=== PATIENT | female | born 2000 ===

== ENCOUNTER 2019-04-21 12:07 | Inpatient (IN) | payer MEDICAID ==
--- NOTE | 2019-04-21 12:45 | PCM.LDHP ---
L&D History of Present Illness - General Date of Service: 04/21/19 Admit Problem/Dx: Admission Diagnosis/Problem Admission Diagnosis/Problem 04/21/19 12:36 18 yo EDC 04/09/2019 41 5/7wks, O+, RI, GBS neg, post dates IOL Source of Information: Patient History Limitations: Reports: No Limitations - History of Present Illness Improves with: Reports: None Worsens with: Reports: None Associated Symptoms: Reports: N - Related Data Allergies/Adverse Reactions: Allergies Allergy/AdvReac Type Severity Reaction Status Date / Time No Known Allergies Allergy Verified 04/16/19 15:07 H&P Review of Systems - Review of Systems: Review Of Systems: See Below General: Reports: No Symptoms HEENT: Reports: No Symptoms Pulmonary: Reports: No Symptoms Cardiovascular: Reports: No Symptoms Gastrointestinal: Reports: No Symptoms Genitourinary: Reports: No Symptoms Musculoskeletal: Reports: No Symptoms Skin: Reports: No Symptoms Psychiatric: Reports: No Symptoms Neurological: Reports: No Symptoms Hematologic/Lymphatic: Reports: No Symptoms Immunologic: Reports: No Symptoms L&D Exam - Exam Exam: See Below - OB Specific Contraction Intensity: Mild Movement: Active Heart Tones: Present Heart Tones per Min: 150 Heart Rate (FHR) Variability: Moderate (6-25 bmp) Presentation: Vertex - Dunbar Score Dunbar Score Cervix Position: Midposition Dunbar Score Consistency: Soft Dunbar Score Effacement: >80% Dunbar Score Dilation: 1-2 cm Dunbar Score 's Station: -2 Dunbar Score Total: 8 - Exam General: Alert, Oriented, Cooperative HEENT: Hearing Intact Lungs: Clear to Auscultation, Normal Respiratory Effort Cardiovascular: Regular Rate, Regular Rhythm, Normal S1, Normal S2 GI/Abdominal Exam: Soft, Non-Tender, Pelvis Stable Rectal Exam: Deferred Genitourinary: Normal external exam, Normal bimanual exam, Cervical dilitation. No: Cervical fluid, Vaginal bleeding Back Exam: Normal Inspection, Full Range of Motion Extremities: Normal Inspection, Normal Range of Motion, Non-Tender, No Pedal Edema Skin: Warm, Dry, Intact Neurological: Cranial Nerves Intact, Reflexes Equal Bilateral, Strength Equal Bilateral, Normal Gait, Normal Speech, Normal Tone, Sensation Intact - Problem List (1) Supervision of normal IUP (intrauterine ) in primigravida SNOMED Code(s): 64247949, 426060250, 133340688, 167446509 ICD Code: Z34.00 - ENCNTR FOR SUPRVSN OF NORMAL FIRST , UNSP TRIMESTER Status: Acute Priority: High Current Visit: Yes Qualifiers: Trimester: third trimester Qualified Code(s): Z34.03 - Encounter for supervision of normal first , third trimester (2) Post-dates SNOMED Code(s): 19295619 ICD Code: O48.0 - POST-TERM Status: Acute Priority: High Current Visit: Yes Qualifiers: Post-term type: 40-42 weeks gestation Qualified Code(s): O48.0 - Post-term Problem List Initiated/Reviewed/Updated: Yes Assessment/Plan Comment:: IOL for post dates A: 18 yo EDC 04/09/2019 41 5/7wks, O+, RI, GBS neg, post dates IOL P: Admit, cytotec to pitocin, pain meds prn, anticipate , Dr Breen updated
[2019-04-21] MEDS ORDERED: Methylergonovine 0.2 MG/1 ML Amp IM PRN (13:51)
[2019-04-21] MEDS ORDERED: Tranexamic Acid 1,000 MG in Sodium Chloride 0.9% 100 ML IV PRN (13:51)
[2019-04-21] MEDS ORDERED: Sodium Chloride 0.9% 2.5 ML Syringe FLUSH PRN (13:51)
[2019-04-21] MEDS ORDERED: Nalbuphine 10 MG/1 ML Vial IVPUSH PRN (13:51)
[2019-04-21] MEDS ORDERED: Lidocaine 1% 50 ML MDV INJECT PRN (13:51)
[2019-04-21] MEDS ORDERED: Terbutaline 1 MG/ML SDV SUBCUT PRN (13:51)
[2019-04-21] MEDS ORDERED: Ondansetron 4 MG/2 ML SDV IVPUSH PRN (13:51)
[2019-04-21] MEDS ORDERED: Carboprost Tromethamine 250 MCG/1 ML Amp IM PRN (13:51)
[2019-04-21] MEDS ORDERED: Sodium Chloride 0.9% 10 ML Syringe FLUSH PRN (13:51)
[2019-04-21] MEDS ORDERED: Misoprostol 25 MCG (1/4 of 100 MCG) Tab VAG PRN (13:51)
[2019-04-21] MEDS ORDERED: Water For Irrigation,Sterile 1,000 ML Container IRR PRN (13:51)
[2019-04-21] MEDS ORDERED: Misoprostol 200 MCG Tab PO PRN (13:51)
[2019-04-21] MEDS ORDERED: Butorphanol 1 MG/ML SDV IVPUSH PRN (13:51)
[2019-04-21] MEDS ORDERED: Sodium Chloride 0.9% 10 ML SDV IV PRN (13:51)
[2019-04-21] MEDS ORDERED: Oxytocin/0.9 % Sodium Chloride 30 UNIT/500 ML BAG IV SCH ×2 (14:00)
[2019-04-21] MEDS: Misoprostol 25 MCG (1/4 of 100 MCG) Tab PO PRN ×2 (14:10→19:20)
[2019-04-21] MEDS: Misoprostol 25 MCG (1/4 of 100 MCG) Tab VAG PRN ×2 (14:11→19:19)
[2019-04-22] MEDS: Lactated Ringers 1,000 ML IV SCH ×2 (10:15→11:02)
[2019-04-22] MEDS ORDERED: Oxytocin 10 Units/1 ML SDV ONE (11:20)
[2019-04-22] MEDS ORDERED: Morphine PF 10 MG/10 ML SDV ONE (11:20)
[2019-04-22] MEDS ORDERED: Ondansetron 4 MG/2 ML SDV ONE (11:20)
[2019-04-22] MEDS ORDERED: Citric Acid/Sodium Citrate Solution 30 ML Cup ONE (11:25)
[2019-04-22] MEDS ORDERED: Octyl 2-Cyanoacrylate 1 Tube ONE (11:41)
[2019-04-22] MEDS ORDERED: Nalbuphine 10 MG/1 ML Vial IVPUSH PRN (11:46)
[2019-04-22] MEDS ORDERED: fentaNYL 100 MCG/2 ML SDV IVPUSH PRN (11:46)
[2019-04-22] MEDS ORDERED: Acetaminophen/oxyCODONE 325-5 MG Tab PO PRN ×2 (11:46→11:56)
--- NOTE | 2019-04-22 11:46 | PCM.PREANE ---
Preanesthetic Assessment - Anesthesia/Transfusion/Family Hx Anesthesia History: No Prior Anesthesia Family History of Anesthesia Reaction: No Transfusion History: No Prior Transfusion(s) - Review of Systems General: No Symptoms Pulmonary: No Symptoms Cardiovascular: No Symptoms Neurological: No Symptoms Other: Reports: None - Physical Assessment Height: 5 ft 2 in Weight: 77.111 kg ASA Class: 2E Mental Status: Alert & Oriented x3 Airway Class: Mallampati = 2 Dentition: Reports: Normal Dentition ROM/Head Extension: Full Lungs: Clear to Auscultation, Normal Respiratory Effort Cardiovascular: Regular Rate, Regular Rhythm - Lab Values: Laboratory Last Values WBC 10.59 K/uL (4.0-11.0) 04/21/19 13:22 RBC 4.51 M/uL (4.30-5.90) 04/21/19 13:22 Hgb 14.2 g/dL (12.0-16.0) 04/21/19 13:22 Hct 42.0 % (36.0-46.0) 04/21/19 13:22 MCV 93.1 fL (80.0-98.0) 04/21/19 13:22 MCH 31.5 pg (27.0-32.0) 04/21/19 13:22 MCHC 33.8 g/dL (31.0-37.0) 04/21/19 13:22 RDW Std Deviation 47.7 fl (28.0-62.0) 04/21/19 13:22 RDW Coeff of Azeb 14 % (11.0-15.0) 04/21/19 13:22 Plt Count 148 K/uL (150-400) L 04/21/19 13:22 MPV 12.10 fL (7.40-12.00) H 04/21/19 13:22 Nucleated RBC % 0.0 /100WBC 04/21/19 13:22 Nucleated RBCs # 0 K/uL 04/21/19 13:22 Blood Type O POSITIVE 04/21/19 13:22 Antibody Screen NEGATIVE 04/21/19 13:22 - Allergies Allergies/Adverse Reactions: Allergies Allergy/AdvReac Type Severity Reaction Status Date / Time No Known Allergies Allergy Verified 04/16/19 15:07 - Blood Blood Available: No - Anesthesia Plan Pre-Op Medication Ordered: None - Acknowledgements Anesthesia Type Planned: Spinal Pt an Appropriate Candidate for the Planned Anesthesia: Yes Alternatives and Risks of Anesthesia Discussed w Pt/Guardian: Yes Pt/Guardian Understands and Agrees with Anesthesia Plan: Yes Additional Comments: , 6 cm, no epidural, urgent c/s called for nrfht, spinal consented questions answered. NKDA, nl airway PLAN: spinal with it duramorph PreAnesthesia Questionnaire - Past Health History Medical/Surgical History: Denies Medical/Surgical History - SUBSTANCE USE Smoking Status *Q: Never Smoker Tobacco Use Within Last Twelve Months: No Second Hand Smoke Exposure: No Recreational Drug Use History: No - CURRENT (IN HOUSE) MEDS Current Meds: Current Medications Butorphanol Tartrate (Stadol) 1 mg IVPUSH Q1H PRN PRN Reason: Pain Carboprost Tromethamine (Hemabate Ds) 250 mcg IM ASDIRECTED PRN PRN Reason: Post Hemorrhage Lactated Ringer's (Ringers, Lactated) 1,000 mls @ 150 mls/hr IV ASDIRECTED NIKKI Oxytocin/Sodium Chloride (Oxytocin 30 Unit/500 Ml-Ns) 30 unit in 500 mls @ 999 mls/hr IV TITRATE NIKKI Oxytocin/Sodium Chloride (Oxytocin 30 Unit/500 Ml-Ns) 30 unit in 500 mls @ 2 mls/hr IV TITRATE NIKKI; Protocol Tranexamic Acid 1,000 mg/ (Sodium Chloride) 110 mls @ 660 mls/hr IV ONETIME PRN PRN Reason: Bleeding Lidocaine HCl (Xylocaine 1%) 50 ml INJECT ONETIME PRN PRN Reason: Laceration repair Methylergonovine Maleate (Methergine) 0.2 mg IM ASDIRECTED PRN PRN Reason: Post Hemorrhage Misoprostol (Cytotec) 200 mcg PO ONETIME PRN PRN Reason: Post Hemorrhage Misoprostol (Cytotec) 25 mcg VAG ONETIME PRN PRN Reason: Cervical Ripening Misoprostol (Cytotec) 25 mcg VAG Q4H PRN PRN Reason: Cervical Ripening Last Admin: 04/21/19 19:19 Dose: 25 mcg Misoprostol (Cytotec) 25 mcg PO Q4H PRN PRN Reason: Cervical Ripening Last Admin: 04/21/19 19:20 Dose: 25 mcg Nalbuphine HCl (Nubain) 10 mg IVPUSH Q1H PRN PRN Reason: Pain (severe 7-10) Ondansetron HCl (Zofran) 4 mg IVPUSH Q6H PRN PRN Reason: Nausea/Vomiting Sodium Chloride (Saline Flush) 10 ml FLUSH ASDIRECTED PRN PRN Reason: Keep Vein Open Sodium Chloride (Saline Flush) 2.5 ml FLUSH ASDIRECTED PRN PRN Reason: Keep Vein Open Sodium Chloride (Normal Saline) 10 ml IV ASDIRECTED PRN PRN Reason: IV Use Sterile Water (Sterile Water For Irrigation) 1,000 ml IRR ASDIRECTED PRN PRN Reason: delivery Terbutaline Sulfate (Brethine) 0.25 mg SUBCUT ASDIRECTED PRN PRN Reason: Tacysystole Discontinued Medications Citric Acid/Sodium Citrate (Bicitra Solution) Confirm Administered Dose 30 ml .ROUTE .STK-MED ONE Stop: 04/22/19 11:26 Morphine Sulfate (Duramorph Pf) Confirm Administered Dose 10 mg .ROUTE .STK-MED ONE Stop: 04/22/19 11:21 Octyl Cyanoacrylate (Dermabond Advance) Confirm Administered Dose 1 applic .ROUTE .STK-MED ONE Stop: 04/22/19 11:42 Ondansetron HCl (Zofran) Confirm Administered Dose 4 mg .ROUTE .STK-MED ONE Stop: 04/22/19 11:21 Oxytocin (Pitocin) Confirm Administered Dose 30 unit .ROUTE .STK-MED ONE Stop: 04/22/19 11:21
[2019-04-22] MEDS ORDERED: Citric Acid/Sodium Citrate Solution 30 ML Cup PO ONE (11:50)
[2019-04-22] MEDS ORDERED: Sodium Chloride 0.9% 2.5 ML Syringe FLUSH PRN (11:50)
[2019-04-22] MEDS ORDERED: Sodium Chloride 0.9% 10 ML Syringe FLUSH PRN (11:50)
[2019-04-22] MEDS ORDERED: Sodium Chloride 0.9% 10 ML SDV IV PRN (11:50)
[2019-04-22] MEDS ORDERED: Lanolin 100% Cream 7 GM Tube TOP PRN (11:56)
[2019-04-22] MEDS ORDERED: diphenhydrAMINE 50 MG/ML SDV IVPUSH PRN (11:56)
[2019-04-22] MEDS ORDERED: Ondansetron 4 MG/2 ML SDV IVPUSH PRN (11:56)
[2019-04-22] MEDS ORDERED: Bisacodyl 10 MG Supp RECTAL PRN (11:56)
[2019-04-22] MEDS ORDERED: Lactated Ringers 1,000 ML IV SCH ×2 (12:00)
--- NOTE | 2019-04-22 12:00 | PCM.OPNOTE ---
- General Post-Op/Procedure Note Date of Surgery/Procedure: 04/22/19 Operative Procedure(s): Emergency C/Section. Pre Op Diagnosis: distress Post-Op Diagnosis: Same Anesthesia Technique: Spinal Primary Surgeon: Felix Breen Vessel Captain: Emely Paredes EBL in mLs: 650 Complications: None Condition: Good
[2019-04-22] MEDS: Ketorolac 30 MG/ML SDV IVPUSH SCH ×3 (12:37→23:56)
--- NOTE | 2019-04-22 12:58 | PCM.POSTAN ---
POST ANESTHESIA ASSESSMENT - MENTAL STATUS Mental Status: Alert, Oriented - VITAL SIGNS Vital Signs: Last Vital Signs Temp Pulse 81 04/22/19 12:41 Resp 14 04/22/19 12:41 BP 101/44 L 04/22/19 12:41 Pulse Ox 97 04/22/19 12:41 - RESPIRATORY Respiratory Status: Respiratory Rate WNL, Airway Patent, O2 Saturation Stable - CARDIOVASCULAR CV Status: Pulse Rate WNL, Blood Pressure Stable - GASTROINTESTINAL GI Status: No Symptoms - POST OP HYDRATION Hydration Status: Adequate & Stable
--- NOTE | 2019-04-22 15:48 | OR ---
SURGEON: Felix Breen MD DATE OF PROCEDURE: 04/22/2019 PREOPERATIVE DIAGNOSES: Intrauterine , postdate, 41+ 5, non-reassuring heart rate, remote from delivery. POSTOPERATIVE DIAGNOSES: Intrauterine , postdate, 41+ 5, non-reassuring heart rate, remote from delivery. OPERATION PERFORMED: Emergency low transverse section. PRIMARY SURGEON: Felix Breen MD. REGIONAL PLANNER: Emely Paredes, Certified Nurse Water Quality Technician. ANESTHESIA: Spinal, Luther Ferguson and Dr. Dooley. ESTIMATED BLOOD LOSS: 650 mL. COMPLICATIONS: None. FINDING: Male fetus. score reported to be 8 and 9. Weight is not available. There was multiple loops of the cord squeezed between the head and shoulders, which probably contributed to the heart rate deceleration. INDICATION FOR SURGERY: This patient is postdate. She is 41+ 5. She is followed by our payloader operator in the clinic. She had no complication. She is admitted for induction. She was responding to Pitocin. She went 5 cm vertex and -3. She started having repeat continuous late deceleration and typical category 2 heart rate. I have evaluated the patient and the patient was 6 cm completely dilated remote from the delivery. Because of the fact that she is postdate, because the heart rate is category 2, and the patient is having extended bradycardia or contraction, a decision is made to do an emergency primary low-transverse section. DESCRIPTION OF PROCEDURE: The patient was brought to the OR, properly identified, and after adequate level of spinal anesthesia with a Ferrara catheter in the bladder, the patient was prepped and draped in sterile fashion as usual. A low transverse Pfannenstiel skin incision done. Millicent's fascia and rectus fascia were opened in direction of the incision. The 2 recti muscles were and peritoneal cavity was entered. Bladder flap was raised in the usual manner pushing the bladder away from the lower uterine segment. Low transverse uterine incision was done, extended manually with hand, and fetus was in a vertex position, delivered, cried immediately, handed to the resuscitating team. score later on reported to be 8 and 9. Multiple loops of nuchal cord around the head and shoulder, which shows looping around and which has probably contributed to the fact that the patient has had extended bradycardia with contraction. The placenta delivered spontaneous complete and intact and repair of the lower uterine segment done with 2-0 Vicryl interlocking in 2 layers. Reperitonealization done with 3-0 Vicryl continuous. The peritoneal cavity evacuated completely from all blood and blood clot and closed with 3-0 Vicryl continuous. The rectus fascia was closed with #1 PDS continuous and then the Millicent fascia with 3-0 Vicryl continuous and the skin closed with Stratafix subcuticular with Dermabond. Instrument and sponge count was correct. The patient tolerated the procedure well, went to recovery room in stable general condition. FLORIN SYKES /[id number]
[2019-04-23] MEDS: Ketorolac 30 MG/ML SDV IVPUSH SCH ×2 (06:26→12:15)
--- NOTE | 2019-04-23 08:11 | PCM48HPAN ---
Post Anesthesia Note - EVALUATION WITHIN 48HRS OF ANESTHETIC Vital Signs in Normal Range: Yes Patient Participated in Evaluation: Yes Respiratory Function Stable: Yes Airway Patent: Yes Cardiovascular Function Stable: Yes Hydration Status Stable: Yes Pain Control Satisfactory: Yes Nausea and Vomiting Control Satisfactory: Yes Mental Status Recovered: Yes Vital Signs: Last Vital Signs Temp 97 F 04/23/19 04:00 Pulse 72 04/23/19 06:55 Resp 16 04/23/19 06:55 BP 109/56 L 04/23/19 04:00 Pulse Ox 95 04/23/19 06:55
[2019-04-23] MEDS: Docusate Sodium 100 MG Cap PO SCH ×3 (08:37→21:10)
--- NOTE | 2019-04-23 08:44 | PCM.PNPP ---
- General Info Date of Service: 04/23/19 Admission Dx/Problem (Free Text): Admission Diagnosis/Problem Admission Diagnosis/Problem 04/21/19 12:36 18 yo EDC 04/09/2019 41 5/7wks, O+, RI, GBS neg, post dates IOL Functional Status: Reports: Pain Controlled, Tolerating Diet, Ambulating, Urinating - Review of Systems General: Reports: No Symptoms HEENT: Reports: No Symptoms Pulmonary: Reports: No Symptoms Cardiovascular: Reports: No Symptoms Gastrointestinal: Reports: No Symptoms Genitourinary: Reports: No Symptoms Musculoskeletal: Reports: No Symptoms Skin: Reports: No Symptoms Neurological: Reports: No Symptoms Psychiatric: Reports: No Symptoms - General Info Date of Service: 04/23/19 - Patient Data Vital Signs - Most Recent: Last Vital Signs Temp 36.1 C 04/23/19 04:00 Pulse 72 04/23/19 06:55 Resp 16 04/23/19 06:55 BP 109/56 L 04/23/19 04:00 Pulse Ox 95 04/23/19 06:55 Weight - Most Recent: 77.111 kg I&O - Last 24 Hours: Intake & Output 04/22/19 04/23/19 04/23/19 22:59 06:59 14:59 Intake Total 4500 Output Total 2090 Balance 2410 Lab Results - Last 24 Hours: Laboratory Results - last 24 hr 04/23/19 Range/Units 06:04 Hgb 12.2 (12.0-16.0) g/dL Hct 37.0 (36.0-46.0) % Med Orders - Current: Current Medications Bisacodyl (Dulcolax) 10 mg RECTAL ONETIME PRN PRN Reason: Constipation Butorphanol Tartrate (Stadol) 1 mg IVPUSH Q1H PRN PRN Reason: Pain Carboprost Tromethamine (Hemabate Ds) 250 mcg IM ASDIRECTED PRN PRN Reason: Post Hemorrhage Diphenhydramine HCl (Benadryl) 25 mg IVPUSH Q6H PRN PRN Reason: Itching or Nausea Docusate Sodium (Colace) 100 mg PO BID NIKKI Last Admin: 04/23/19 08:38 Dose: 100 mg Emollient Ointment (Lansinoh Hpa) 0 gm TOP ASDIRECTED PRN PRN Reason: Sore Nipples Fentanyl (Sublimaze) 50 mcg IVPUSH Q5M PRN PRN Reason: Pain (severe 7-10) Stop: 04/23/19 11:46 Lactated Ringer's (Ringers, Lactated) 1,000 mls @ 150 mls/hr IV ASDIRECTED [facility] Last Admin: 04/22/19 11:02 Dose: 500 mls/hr Oxytocin/Sodium Chloride (Oxytocin 30 Unit/500 Ml-Ns) 30 unit in 500 mls @ 999 mls/hr IV TITRATE NIKKI Oxytocin/Sodium Chloride (Oxytocin 30 Unit/500 Ml-Ns) 30 unit in 500 mls @ 2 mls/hr IV TITRATE NIKKI; Protocol Tranexamic Acid 1,000 mg/ (Sodium Chloride) 110 mls @ 660 mls/hr IV ONETIME PRN PRN Reason: Bleeding Lactated Ringer's (Ringers, Lactated) 1,000 mls @ 500 mls/hr IV BOLUS NIKKI Lactated Ringer's (Ringers, Lactated) 1,000 mls @ 125 mls/hr IV ASDIRECTED [facility] Last Admin: 04/22/19 14:41 Dose: 125 mls/hr Ibuprofen (Motrin) 800 mg PO Q8H PRN PRN Reason: mild pain or fever Ketorolac Tromethamine (Toradol) 30 mg IVPUSH Q6H [facility] Stop: 04/23/19 12:01 Last Admin: 04/23/19 06:26 Dose: 30 mg Lidocaine HCl (Xylocaine 1%) 50 ml INJECT ONETIME PRN PRN Reason: Laceration repair Methylergonovine Maleate (Methergine) 0.2 mg IM ASDIRECTED PRN PRN Reason: Post Hemorrhage Misoprostol (Cytotec) 200 mcg PO ONETIME PRN PRN Reason: Post Hemorrhage Misoprostol (Cytotec) 25 mcg VAG ONETIME PRN PRN Reason: Cervical Ripening Misoprostol (Cytotec) 25 mcg VAG Q4H PRN PRN Reason: Cervical Ripening Last Admin: 04/21/19 19:19 Dose: 25 mcg Misoprostol (Cytotec) 25 mcg PO Q4H PRN PRN Reason: Cervical Ripening Last Admin: 04/21/19 19:20 Dose: 25 mcg Nalbuphine HCl (Nubain) 10 mg IVPUSH Q1H PRN PRN Reason: Pain (severe 7-10) Nalbuphine HCl (Nubain) 2.5 mg IVPUSH Q3H PRN PRN Reason: Pruritis Stop: 04/23/19 11:47 Ondansetron HCl (Zofran) 4 mg IVPUSH Q6H PRN PRN Reason: Nausea/Vomiting Ondansetron HCl (Zofran) 4 mg IVPUSH Q4H PRN PRN Reason: Nausea/Vomiting Oxycodone/Acetaminophen (Percocet 325-5 Mg) 1 tab PO ONETIME PRN PRN Reason: Pain (moderate 4-6) Oxycodone/Acetaminophen (Percocet 325-5 Mg) 1 tab PO Q4H PRN PRN Reason: Pain (moderate 4-6) Oxycodone/Acetaminophen (Percocet 325-5 Mg) 2 tab PO Q4H PRN PRN Reason: Pain (moderate 4-6) Sodium Chloride (Saline Flush) 10 ml FLUSH ASDIRECTED PRN PRN Reason: Keep Vein Open Sodium Chloride (Saline Flush) 2.5 ml FLUSH ASDIRECTED PRN PRN Reason: Keep Vein Open Sodium Chloride (Normal Saline) 10 ml IV ASDIRECTED PRN PRN Reason: IV Use Sodium Chloride (Saline Flush) 10 ml FLUSH ASDIRECTED PRN PRN Reason: Keep Vein Open Sodium Chloride (Saline Flush) 2.5 ml FLUSH ASDIRECTED PRN PRN Reason: Keep Vein Open Sodium Chloride (Normal Saline) 10 ml IV ASDIRECTED PRN PRN Reason: IV Use Sterile Water (Sterile Water For Irrigation) 1,000 ml IRR ASDIRECTED PRN PRN Reason: delivery Terbutaline Sulfate (Brethine) 0.25 mg SUBCUT ASDIRECTED PRN PRN Reason: Tacysystole Discontinued Medications Citric Acid/Sodium Citrate (Bicitra Solution) Confirm Administered Dose 30 ml .ROUTE .STK-MED ONE Stop: 04/22/19 11:26 Last Admin: 04/22/19 18:14 Dose: Not Given Citric Acid/Sodium Citrate (Bicitra Solution) 30 ml PO ONETIME ONE Stop: 04/22/19 11:51 Last Admin: 04/22/19 18:14 Dose: Not Given Morphine Sulfate (Duramorph Pf) Confirm Administered Dose 10 mg .ROUTE .STK-MED ONE Stop: 04/22/19 11:21 Octyl Cyanoacrylate (Dermabond Advance) Confirm Administered Dose 1 applic .ROUTE .STK-MED ONE Stop: 04/22/19 11:42 Last Admin: 04/22/19 18:14 Dose: Not Given Ondansetron HCl (Zofran) Confirm Administered Dose 4 mg .ROUTE .STK-MED ONE Stop: 04/22/19 11:21 Oxytocin (Pitocin) Confirm Administered Dose 30 unit .ROUTE .STK-MED ONE Stop: 04/22/19 11:21 - Infant Interaction Infant Disposition, : in Room with Family Interaction: Holding Infant Infant Feeding: Breastfed ; Nursed Well Support Person: Mother - Recovery Exam Fundal Tone: Firm Fundal Level: At Umbilicus Fundal Placement: Midline Lochia Amount: Scant Lochia Color: Rubra/Red Episiotomy/Laceration: None Bladder Status: Voiding Urinary Elimination: Voided - Exam General: Alert, Oriented, Cooperative Lungs: Normal Respiratory Effort GI/Abdominal Exam: Soft, Non-Tender, No Distention, Pelvis Stable Extremities: Normal Inspection, Normal Range of Motion, Non-Tender, No Pedal Edema Skin: Warm, Dry, Intact Wound/Incisions: Healing Well Neurological: No New Focal Deficit, Normal Speech, Normal Tone, Strength Equal Bilateral, Sensation Intact Psy/Mental Status: Alert, Normal Affect, Normal Mood - Problem List & Annotations (1) Supervision of normal IUP (intrauterine ) in primigravida SNOMED Code(s): 95048778, 204450511, 272305678, 169828872 Code(s): Z34.00 - ENCNTR FOR SUPRVSN OF NORMAL FIRST , UNSP TRIMESTER Status: Acute Priority: High Current Visit: Yes Qualifiers: Trimester: third trimester Qualified Code(s): Z34.03 - Encounter for supervision of normal first , third trimester (2) Post-dates SNOMED Code(s): 63779339 Code(s): O48.0 - POST-TERM Status: Acute Priority: High Current Visit: Yes Qualifiers: Post-term type: 40-42 weeks gestation Qualified Code(s): O48.0 - Post-term (3) delivery delivered SNOMED Code(s): 290751560 Code(s): O82 - ENCOUNTER FOR DELIVERY WITHOUT INDICATION Status: Acute Priority: High Current Visit: Yes - Problem List Review Problem List Initiated/Reviewed/Updated: Yes - Plan Plan:: IOL for post dates A: 18 yo EDC 04/09/2019 41 5/7wks, O+, RI, GBS neg, post dates IOL P: Admit, cytotec to pitocin, pain meds prn, anticipate , Dr Breen updated PPD#1 A: PCS for NSFHT, VSS, AF, dressing intact, no concerns. Stable P; Continue pp poc
[2019-04-23] MEDS: Acetaminophen/oxyCODONE 325-5 MG Tab PO PRN (19:53)
[2019-04-23] MEDS: Ibuprofen 800 MG Tab PO PRN (19:55)
[2019-04-24] MEDS: Acetaminophen/oxyCODONE 325-5 MG Tab PO PRN ×3 (01:36→13:18)
[2019-04-24] MEDS: Ibuprofen 800 MG Tab PO PRN ×2 (06:11→13:17)
--- NOTE | 2019-04-24 06:44 | PCM.DCSUM1 ---
Discharge Summary - Hospital Course Free Text/Narrative:: Discharge home with infant. Follow up in 1 weeks for incision check and 6 weeks for visit. Diagnosis: Stroke: No Modified Vandemere Scale: No Symptoms at All Modified Vandemere Scale Score: 0 - Discharge Data Discharge Date: 04/24/19 Discharge Disposition: Home, Self-Care 01 Condition: Good - Referral to Home Health Primary Care Physician: PCP Unknown - Discharge Diagnosis/Problem(s) (1) Supervision of normal IUP (intrauterine ) in primigravida SNOMED Code(s): 93701221, 361121277, 644950902, 381046474 ICD Code: Z34.00 - ENCNTR FOR SUPRVSN OF NORMAL FIRST , UNSP TRIMESTER Status: Acute Priority: High Current Visit: Yes Qualifiers: Trimester: third trimester Qualified Code(s): Z34.03 - Encounter for supervision of normal first , third trimester (2) Post-dates SNOMED Code(s): 45815733 ICD Code: O48.0 - POST-TERM Status: Acute Priority: High Current Visit: Yes Qualifiers: Post-term type: 40-42 weeks gestation Qualified Code(s): O48.0 - Post-term (3) delivery delivered SNOMED Code(s): 220592083 ICD Code: O82 - ENCOUNTER FOR DELIVERY WITHOUT INDICATION Status: Acute Priority: High Current Visit: Yes - Patient Summary/Data Operative Procedure(s) Performed: Emergency C/Section. - Patient Instructions Diet: Usual Diet as Tolerated Activity: As Tolerated, No Strenuous Activities, Rest and Relax Today Driving: Do Not Drive Showering/Bathing: May Shower Wound/Incision Care: Keep Operative Site/Wound Site Clean and Dry Notify Provider of: Fever, Increased Pain, Swelling and Redness, Drainage, Nausea and/or Vomiting Other/Special Instructions: Discharge home with infant. Follow up in 1 weeks for incision check and 6 weeks for visit. - Discharge Plan *PRESCRIPTION DRUG MONITORING PROGRAM REVIEWED*: Not Applicable *COPY OF PRESCRIPTION DRUG MONITORING REPORT IN PATIENT RE: Not Applicable Prescriptions/Med Rec: Acetaminophen/oxyCODONE [Percocet 325-5 MG] 1 tab PO ONETIME PRN #30 tablet PRN Reason: Pain (Moderate 4-6) Ibuprofen [Motrin] 800 mg PO Q8H PRN #90 tablet PRN Reason: mild pain or fever Home Medications: Home Meds Acetaminophen/oxyCODONE [Percocet 325-5 MG] 1 tab PO ONETIME PRN #30 tablet 05/03 [Rx] Ibuprofen [Motrin] 800 mg PO Q8H PRN #90 tablet 04/24/19 [Rx] Oxygen Therapy Mode: Room Air Referrals: [facility] [Outside] Emely Paredes CNM [Mid-] - ( week- May 02@ 10:45am w/ Emely Paredes week- June 02@ 10:45am w/ Emely Paredes) - Discharge Summary/Plan Comment DC Time >30 min.: Yes - General Info Date of Service: 04/24/19 Admission Dx/Problem (Free Text: Admission Diagnosis/Problem Admission Diagnosis/Problem 04/21/19 12:36 18 yo EDC 04/09/2019 41 5/7wks, O+, RI, GBS neg, post dates IOL Functional Status: Reports: Pain Controlled, Tolerating Diet, Ambulating, Urinating - Review of Systems General: Reports: No Symptoms HEENT: Reports: No Symptoms Pulmonary: Reports: No Symptoms Cardiovascular: Reports: No Symptoms Gastrointestinal: Reports: No Symptoms Genitourinary: Reports: No Symptoms Musculoskeletal: Reports: No Symptoms Skin: Reports: No Symptoms Neurological: Reports: No Symptoms Psychiatric: Reports: No Symptoms - Patient Data Vitals - Most Recent: Last Vital Signs Temp 36.4 C 04/24/19 06:12 Pulse 67 04/24/19 06:12 Resp 17 04/24/19 06:12 BP 126/85 04/24/19 06:12 Pulse Ox 98 04/24/19 06:12 Weight - Most Recent: 77.111 kg Med Orders - Current: Current Medications Bisacodyl (Dulcolax) 10 mg RECTAL ONETIME PRN PRN Reason: Constipation Butorphanol Tartrate (Stadol) 1 mg IVPUSH Q1H PRN PRN Reason: Pain Carboprost Tromethamine (Hemabate Ds) 250 mcg IM ASDIRECTED PRN PRN Reason: Post Hemorrhage Diphenhydramine HCl (Benadryl) 25 mg IVPUSH Q6H PRN PRN Reason: Itching or Nausea Docusate Sodium (Colace) 100 mg PO BID [facility] Last Admin: 04/23/19 21:10 Dose: 100 mg Emollient Ointment (Lansinoh Hpa) 0 gm TOP ASDIRECTED PRN PRN Reason: Sore Nipples Lactated Ringer's (Ringers, Lactated) 1,000 mls @ 150 mls/hr IV ASDIRECTED [facility] Last Admin: 04/22/19 11:02 Dose: 500 mls/hr Oxytocin/Sodium Chloride (Oxytocin 30 Unit/500 Ml-Ns) 30 unit in 500 mls @ 999 mls/hr IV TITRATE NIKKI Oxytocin/Sodium Chloride (Oxytocin 30 Unit/500 Ml-Ns) 30 unit in 500 mls @ 2 mls/hr IV TITRATE NIKKI; Protocol Tranexamic Acid 1,000 mg/ (Sodium Chloride) 110 mls @ 660 mls/hr IV ONETIME PRN PRN Reason: Bleeding Lactated Ringer's (Ringers, Lactated) 1,000 mls @ 500 mls/hr IV BOLUS [facility] Lactated Ringer's (Ringers, Lactated) 1,000 mls @ 125 mls/hr IV ASDIRECTED [facility] Last Admin: 04/22/19 14:41 Dose: 125 mls/hr Ibuprofen (Motrin) 800 mg PO Q8H PRN PRN Reason: mild pain or fever Last Admin: 04/24/19 06:11 Dose: 800 mg Lidocaine HCl (Xylocaine 1%) 50 ml INJECT ONETIME PRN PRN Reason: Laceration repair Methylergonovine Maleate (Methergine) 0.2 mg IM ASDIRECTED PRN PRN Reason: Post Hemorrhage Misoprostol (Cytotec) 200 mcg PO ONETIME PRN PRN Reason: Post Hemorrhage Misoprostol (Cytotec) 25 mcg VAG ONETIME PRN PRN Reason: Cervical Ripening Misoprostol (Cytotec) 25 mcg VAG Q4H PRN PRN Reason: Cervical Ripening Last Admin: 04/21/19 19:19 Dose: 25 mcg Misoprostol (Cytotec) 25 mcg PO Q4H PRN PRN Reason: Cervical Ripening Last Admin: 04/21/19 19:20 Dose: 25 mcg Nalbuphine HCl (Nubain) 10 mg IVPUSH Q1H PRN PRN Reason: Pain (severe 7-10) Ondansetron HCl (Zofran) 4 mg IVPUSH Q6H PRN PRN Reason: Nausea/Vomiting Ondansetron HCl (Zofran) 4 mg IVPUSH Q4H PRN PRN Reason: Nausea/Vomiting Oxycodone/Acetaminophen (Percocet 325-5 Mg) 1 tab PO ONETIME PRN PRN Reason: Pain (moderate 4-6) Oxycodone/Acetaminophen (Percocet 325-5 Mg) 1 tab PO Q4H PRN PRN Reason: Pain (moderate 4-6) Last Admin: 04/23/19 16:10 Dose: 1 tab Oxycodone/Acetaminophen (Percocet 325-5 Mg) 2 tab PO Q4H PRN PRN Reason: Pain (moderate 4-6) Last Admin: 04/24/19 06:11 Dose: 2 tab Sodium Chloride (Saline Flush) 10 ml FLUSH ASDIRECTED PRN PRN Reason: Keep Vein Open Sodium Chloride (Saline Flush) 2.5 ml FLUSH ASDIRECTED PRN PRN Reason: Keep Vein Open Sodium Chloride (Normal Saline) 10 ml IV ASDIRECTED PRN PRN Reason: IV Use Sodium Chloride (Saline Flush) 10 ml FLUSH ASDIRECTED PRN PRN Reason: Keep Vein Open Sodium Chloride (Saline Flush) 2.5 ml FLUSH ASDIRECTED PRN PRN Reason: Keep Vein Open Sodium Chloride (Normal Saline) 10 ml IV ASDIRECTED PRN PRN Reason: IV Use Sterile Water (Sterile Water For Irrigation) 1,000 ml IRR ASDIRECTED PRN PRN Reason: delivery Terbutaline Sulfate (Brethine) 0.25 mg SUBCUT ASDIRECTED PRN PRN Reason: Tacysystole Discontinued Medications Citric Acid/Sodium Citrate (Bicitra Solution) Confirm Administered Dose 30 ml .ROUTE .STK-MED ONE Stop: 04/22/19 11:26 Last Admin: 04/22/19 18:14 Dose: Not Given Citric Acid/Sodium Citrate (Bicitra Solution) 30 ml PO ONETIME ONE Stop: 04/22/19 11:51 Last Admin: 04/22/19 18:14 Dose: Not Given Fentanyl (Sublimaze) 50 mcg IVPUSH Q5M PRN PRN Reason: Pain (severe 7-10) Stop: 04/23/19 11:46 Ketorolac Tromethamine (Toradol) 30 mg IVPUSH Q6H NIKKI Stop: 04/23/19 12:01 Last Admin: 04/23/19 12:15 Dose: 30 mg Morphine Sulfate (Duramorph Pf) Confirm Administered Dose 10 mg .ROUTE .STK-MED ONE Stop: 04/22/19 11:21 Nalbuphine HCl (Nubain) 2.5 mg IVPUSH Q3H PRN PRN Reason: Pruritis Stop: 04/23/19 11:47 Octyl Cyanoacrylate (Dermabond Advance) Confirm Administered Dose 1 applic .ROUTE .STK-MED ONE Stop: 04/22/19 11:42 Last Admin: 04/22/19 18:14 Dose: Not Given Ondansetron HCl (Zofran) Confirm Administered Dose 4 mg .ROUTE .STK-MED ONE Stop: 04/22/19 11:21 Oxytocin (Pitocin) Confirm Administered Dose 30 unit .ROUTE .STK-MED ONE Stop: 04/22/19 11:21 - Exam General: Reports: Alert, Oriented, Cooperative, No Acute Distress Lungs: Reports: Clear to Auscultation, Normal Respiratory Effort. Denies: Decreased Breath Sounds Cardiovascular: Reports: Regular Rate, Regular Rhythm, No Murmurs. Denies: Irregular Rhythm GI/Abdominal Exam: Soft, Non-Tender (Female) Exam: Deferred, Vaginal Bleeding Rectal (Female) Exam: Deferred Back Exam: Reports: Normal Inspection, Full Range of Motion Extremities: Normal Inspection, Normal Range of Motion, Non-Tender, No Pedal Edema Skin: Reports: Warm, Dry, Intact Wound/Incisions: Reports: Healing Well Neurological: Reports: No New Focal Deficit, Normal Gait, Normal Speech, Normal Tone, Strength Equal Bilateral, Sensation Intact Psy/Mental Status: Reports: Alert, Normal Affect, Normal Mood
== END 2019-04-24 13:43 | disposition home or self-care (01) | DRG 788 ==
LOC: MW.OBCHECK 12:07 → MW.OB 12:08 → MW.OBCHECK 13:50 → MW.OB 13:51 → OBSVTOIN 04-22 11:40 → MW.OB 04-22 15:56
PROVIDERS: ADMIT Obstetrics & Gynecology; ATTEND Obstetrics & Gynecology
PROC: 10D00Z1 Extraction of Products of Conception, Low, Open Approach (ICD-10-PCS; principal; 2019-04-22)
PROC: 10907ZC Drainage of Amniotic Fluid, Therapeutic from Products of Conception, Via Natural or Artificial Opening (ICD-10-PCS; 2019-04-22)
PROC: 3E033VJ Introduction of Other Hormone into Peripheral Vein, Percutaneous Approach (ICD-10-PCS; 2019-04-22)
DX: O48.0 Post-term pregnancy (principal); O76 Abnormality in fetal heart rate and rhythm complicating labor and delivery; O99.89 Other specified diseases and conditions complicating pregnancy, childbirth and the puerperium; R00.1 Bradycardia, unspecified; O69.81X0 Labor and delivery complicated by cord around neck, without compression, not applicable or unspecified; Z37.0 Single live birth; Z3A.41 41 weeks gestation of pregnancy
CPT/HCPCS: 36415; 51702; 59025; 85014; 85018; 85027; 86850; 86900; 86901; A9270-GY; J1885; J2270; J2405; J2590; J7120

== ENCOUNTER 2019-05-06 14:16 | Emergency (ER) | payer MEDICAID ==
--- NOTE | 2019-05-06 15:00 | EDM.PDOC ---
ED HPI GENERAL MEDICAL PROBLEM - General Chief Complaint: Gastrointestinal Problem Stated Complaint: NAUSEA Time Seen by Provider: 05/06/19 14:58 Source of Information: Reports: Patient - History of Present Illness INITIAL COMMENTS - FREE TEXT/NARRATIVE: HISTORY AND PHYSICAL: History of present illness: Patient presents as her provider has her come in for a check as she had a phone conversation and had stated she felt short of breath, she does not appear short of breath there is no air hunger she can speak in full sentences however she states when she takes a deep breath it does not feel that she gets a full breath and she describes it as almost feeling she has no fever nausea vomiting chills sweats no chest pain no actual shortness of breath no headache dizziness palpitation no bowel or urine symptoms Review of systems: As per history of present illness and below otherwise all systems reviewed and negative. Past medical history: As per history of present illness and as reviewed below otherwise noncontributory. Surgical history: As per history of present illness and as reviewed below otherwise noncontributory. Social history: No reported history of drug or alcohol abuse. Family history: As per history of present illness and as reviewed below otherwise noncontributory. Physical exam: HEENT: Atraumatic, normocephalic, pupils reactive, negative for conjunctival pallor or scleral icterus, mucous membranes moist, throat clear, neck supple, nontender, trachea midline. Lungs: Clear to auscultation, breath sounds equal bilaterally, chest nontender. Heart: S1S2, regular, negative for clicks, rubs, or JVD. Abdomen: Soft, nondistended, nontender. Negative for masses or hepatosplenomegaly. Negative for costovertebral tenderness. Pelvis: Stable nontender. Genitourinary: Deferred. Rectal: Deferred. Extremities: Atraumatic, negative for cords or calf pain. Neurovascular unremarkable. Neuro: Awake, alert, oriented. Cranial nerves II through XII unremarkable. Cerebellum unremarkable. Motor and sensory unremarkable throughout. Exam nonfocal. Diagnostics: [Did offer lab including d-dimer however she refuses and actually states she feels fine and would like to leave ] Therapeutics: [ follow-up with primary care/OB ] Impression: [: Screening exam 2 weeks post ] Definitive disposition and diagnosis as appropriate pending reevaluation and review of above. - Related Data Allergies Allergy/AdvReac Type Severity Reaction Status Date / Time No Known Allergies Allergy Verified 05/06/19 14:48 Home Meds: Home Meds . 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 Social & Family History - Family History Family Medical History: Noncontributory Cardiac: Reports: Hypertension - Tobacco Use Smoking Status *Q: Never Smoker - Caffeine Use Caffeine Use: Reports: None - Recreational Drug Use Recreational Drug Use: No ED ROS GENERAL - Review of Systems Review Of Systems: See Below ED EXAM, GENERAL - Physical Exam Exam: See Below Course - Vital Signs Last Recorded V/S: Last Vital Signs Temp 97.6 F 05/06/19 14:45 Pulse 78 05/06/19 14:45 Resp 16 05/06/19 14:45 BP 130/76 05/06/19 14:45 Pulse Ox 97 05/06/19 14:45 Departure - Departure Time of Disposition: 14:59 Disposition: Home, Self-Care 01 Condition: Good Clinical Impression: Encounter for medical screening examination - Discharge Information Referrals: Emely Paredes CNM [Primary Care Provider] - Additional Instructions: The following information is given to patients seen in the emergency department who are being discharged to home. This information is to outline your options for follow-up care. We provide all patients seen in our emergency department with a follow-up referral. The need for follow-up, as well as the timing and circumstances, are variable depending upon the specifics of your emergency department visit. If you don't have a primary care physician on staff, we will provide you with a referral. We always advise you to contact your personal physician following an emergency department visit to inform them of the circumstance of the visit and for follow-up with them and/or the need for any referrals to a consulting specialist. The emergency department will also refer you to a specialist when appropriate. This referral assures that you have the opportunity for follow-up care with a specialist. All of these measure are taken in an effort to provide you with optimal care, which includes your follow-up. Under all circumstances we always encourage you to contact your private physician who remains a resource for coordinating your care. When calling for follow-up care, please make the office aware that this follow-up is from your recent emergency room visit. If for any reason you are refused follow-up, please contact the [facility] emergency department at and asked to speak to the emergency department charge nurse.
== END 2019-05-06 15:07 | disposition home or self-care (01) ==
LOC: MW.ED 14:16
DX: Z13.9 Encounter for screening, unspecified (principal)
CPT/HCPCS: 99283

== ENCOUNTER 2024-05-23 05:20 | Inpatient (IN) | payer MEDICAID ==
[2024-05-23] MEDS ORDERED: Sodium Chloride 0.9% 20 ML SDV IV PRN (05:25)
[2024-05-23] MEDS ORDERED: Sodium Chloride 0.9% 2.5 ML Syringe FLUSH PRN (05:25)
[2024-05-23] MEDS ORDERED: Sodium Chloride 0.9% 10 ML Syringe FLUSH PRN (05:25)
[2024-05-23] MEDS ORDERED: Oxytocin/0.9 % Sodium Chloride 30 UNIT/500 ML BAG IV SCH (05:30)
[2024-05-23 06:14] LABS: HEMATOCRIT 34.3 % (37.0-47.0); HEMOGLOBIN 11.5 g/dL (12.0-16.0); MEAN CORPUSCULAR HEMOGLOBIN 28.6 pg (28.0-32.0); MEAN CORPUSCULAR HGB CONC 33.5 g/dL (32.0-36.0); MEAN CORPUSCULAR VOLUME 85.3 fL (83.0-99.0); MEAN PLATELET VOLUME 11.8 fL (9.4-12.3); PLATELET COUNT,PLT 154 K/uL (150-400); RED BLOOD CELL COUNT 4.02 M/uL (4.10-5.30); WHITE BLOOD CELL COUNT,WBC 6.33 K/uL (3.9-11.3)
[2024-05-23] MEDS: Lactated Ringers 1,000 ML IV SCH (06:24)
[2024-05-23] MEDS ORDERED: EPINEPHrine 1 MG/1 ML Amp ONE (06:43)
[2024-05-23] MEDS ORDERED: ceFAZolin 1 GM Vial ONE (06:43)
[2024-05-23] MEDS ORDERED: fentaNYL 100 MCG/2 ML SDV ONE (06:43)
[2024-05-23] MEDS ORDERED: Ketorolac 30 MG/ML SDV ONE (06:43)
[2024-05-23] MEDS ORDERED: Bupivacaine 0.25% 30 ML SDV ONE (06:43)
[2024-05-23] MEDS ORDERED: Ropivacaine 0.5% 5 MG/ML 30 ML SDV ONE (06:43)
[2024-05-23] MEDS ORDERED: Morphine PF 10 MG/10 ML SDV ONE (06:43)
[2024-05-23] MEDS ORDERED: Oxytocin 10 Units/1 ML SDV ONE (06:43)
[2024-05-23] MEDS ORDERED: Ondansetron 4 MG/2 ML SDV ONE (06:43)
[2024-05-23] MEDS ORDERED: Phenylephrine HCl In 0.9% NaCl 1 MG/10 ML Syringe ONE ×2 (06:44→07:27)
[2024-05-23] MEDS ORDERED: Tranexamic Acid 1,000 MG/10 ML Vial ONE (06:50)
[2024-05-23] MEDS ORDERED: Misoprostol 200 MCG Tab RECTAL PRN (07:11)
[2024-05-23] MEDS ORDERED: Oxytocin 10 Units/1 ML SDV IM PRN (07:11)
[2024-05-23] MEDS ORDERED: Methylergonovine 0.2 MG/1 ML Amp IM PRN (07:11)
[2024-05-23] MEDS ORDERED: diphenhydrAMINE 50 MG/ML SDV IVPUSH PRN (07:11)
[2024-05-23] MEDS ORDERED: Bisacodyl 10 MG Supp RECTAL PRN (07:11)
[2024-05-23] MEDS ORDERED: Ondansetron 4 MG/2 ML SDV IVPUSH PRN ×3 (07:11→08:39)
[2024-05-23] MEDS ORDERED: Lactated Ringers 1,000 ML IV SCH (07:15)
[2024-05-23] MEDS ORDERED: dexmedeTOMIDine HCl 200 MCG/2 ML SDV ONE (07:38)
[2024-05-23] MEDS: Ketorolac 30 MG/ML SDV IVPUSH SCH (08:00)
[2024-05-23] MEDS ORDERED: Naloxone 0.4 MG/ML SDV IVPUSH PRN (08:39)
[2024-05-23] MEDS ORDERED: Acetaminophen/oxyCODONE 325-5 MG Tab PO PRN (08:39)
[2024-05-23] MEDS ORDERED: Phenylephrine HCl In 0.9% NaCl 1 MG/10 ML Syringe IVPUSH PRN (08:39)
[2024-05-23] MEDS ORDERED: Nalbuphine 10 MG/1 ML Vial IVPUSH PRN (08:39)
[2024-05-23] MEDS ORDERED: ePHEDrine 50 MG/ML SDV IM PRN (08:39)
[2024-05-23] MEDS ORDERED: Albuterol 0.083% 2.5 MG/3 ML Neb Soln NEB PRN (08:39)
[2024-05-23] MEDS ORDERED: fentaNYL 100 MCG/2 ML SDV IVPUSH PRN (08:39)
[2024-05-23] MEDS ORDERED: HYDROmorphone 1 MG/ML Syringe IVPUSH PRN (08:39)
[2024-05-23] MEDS ORDERED: Metoclopramide 10 MG/2 ML SDV IVPUSH PRN (08:39)
[2024-05-23] MEDS ORDERED: Morphine 2 MG/ML SYRINGE IVPUSH PRN (08:39)
[2024-05-23] MEDS ORDERED: fentaNYL 50 MCG/ML SDV IVPUSH PRN (08:39)
[2024-05-23] MEDS: Docusate Sodium 100 MG Cap PO SCH (09:26)
[2024-05-23] MEDS: diphenhydrAMINE 50 MG/ML SDV IVPUSH PRN (09:45)
[2024-05-23] MEDS: Acetaminophen 1,000 MG in Premix Bag 1 BAG IV SCH (10:29)
[2024-05-23] MEDS: Citric Acid/Sodium Citrate Solution 30 ML Cup PO ONE (12:41)
[2024-05-23] MEDS: ceFAZolin 2 GM in Sodium Chloride 0.9% 50 ML IV ONE (12:41)
[2024-05-23] MEDS: Lanolin 100% Cream 7 GM Tube TOP PRN (18:30)
[2024-05-24 05:08] LABS: HEMATOCRIT 30.1 % (37.0-47.0); HEMOGLOBIN 10.1 g/dL (12.0-16.0)
[2024-05-24] MEDS: Ibuprofen 800 MG Tab PO PRN (14:34)
[2024-05-24] MEDS: Acetaminophen/oxyCODONE 325-5 MG Tab PO PRN ×2 (18:17→20:50)
== END 2024-05-25 14:08 | disposition home or self-care (01) | DRG 788 ==
LOC: UNDOADMIN 05:20 → MW.OB 05:20 → EDSTATUS 12:00 → MW.OB 13:47
PROVIDERS: ADMIT Obstetrics & Gynecology Obstetrics; ATTEND Obstetrics & Gynecology Obstetrics
PROC: 10D00Z1 Extraction of Products of Conception, Low, Open Approach (ICD-10-PCS; principal; 2024-05-23 07:00)
DX: O34.211 Maternal care for low transverse scar from previous cesarean delivery (principal); Z37.0 Single live birth; Z3A.39 39 weeks gestation of pregnancy; O69.81X0 Labor and delivery complicated by cord around neck, without compression, not applicable or unspecified; O99.824 Streptococcus B carrier state complicating childbirth
CPT/HCPCS: 01961; 36415; 59025; 64488; 85014; 85018; 85027; 86592; 86850; 86900; 86901; A9270-GY; J0131; J0171; J0665; J0690; J1100; J1200; J1885; J2274; J2371; J2405; J2590; J2795; J3010; J3490; J7120